=== PATIENT | male | born 1975 | race Caucasian/White ===

== ENCOUNTER 2024-05-21 11:28 | Emergency (ER) | payer SELFPAY ==
--- OUTSIDE RECORDS SUMMARY | 2024-05-21 11:31 | XMS REPORT | Continuity of Care Document ---
Author Name Unknown Address [address] [facility] th[address] Address [address] [facility] [place] [address] Care Team Providers Care Fingerer Name Role Phone PCP, PATIENT DOES NOT HAVE A Primary Care Physic mary Unavailable Ar Malloy Attending Clinician [phone] AR SALMERON Attending Clinician Unavailable AR SALMERON Attending Clinician Unavailable AR SALMERON Admitting Clinician Unavailable Allergies, Adverse Reactions, Alerts Allergy Name Allergy Type Status Severity Reaction(s) Onset Date Inactive Date Treating Clinician Comments Source NO KNOWN ALLERGIE S Drug Class Active [facility] Social History Social Habit Start Date Stop Date Quantity Comments Source Sexual orientation U [facility] Sex assigned at 1975 00:00:00 1975 00:00:00 [facility] Smoking Status Start Date Stop Date Source Tobacco smoking consumption unknown [facility] Medications Ordered Medication Name Filled Medication Name Start Date Stop Date Current Medication? Ordering Clinician Indication Dosage Frequency Signature (SIG) Comments Components Source NaCl 0.9% (NS) bolus infusion 1,000 mL 2023-03 00:00: 00 02-19 01:45 :00 No 1000mL at 999 mL/hr, 1,000 mL, IV Infusion, ONCE, 1 dose, On Tracy 02/19/24 at 1800, TAMMY [facility] iopamidol (ISOVUE 370-500 mL) injection 84 mL 2023-03 22:00: 00 02-18 22:00 :00 No [id number] 84mL 84 mL, Intravenou s, ONCE, 1 dose, On Tracy 02/19/24 at 1600, Routine [facility] KCL (KLOR-CON M20) tablet 40 mEq 2023-03 21:15: 00 02-18 22:10 :00 No 40meq 40 mEq, Oral, ONCE, 1 dose, On Tracy 02/19/24 at 1515, TAMMY [facility] NaCl 0.9% (NS) bolus infusion 1,000 mL 2023-03 21:00: 00 02-18 22:08 :00 No 1000mL at 999 mL/hr, 1,000 mL, IV Infusion, ONCE, 1 dose, On Tracy 02/19/24 at 1500, TAMMY [facility] ondansetron (ZOFRAN (PF)) injection 4 mg 2023-03 20:15: 00 02-18 20:35 :00 No 4mg 4 mg, Slow IV Push, ONCE, 1 dose, On Tracy 02/19/24 at 1415, Administer over 2-5 Minutes, 2 mL [facility] ondansetron 4 mg disintegrat ing tablet 2023-03 00:00: 00 Yes [id number] 4mg Take 1 tablet by mouth every 8 (eight) hours as needed for Nausea and Vomiting (N/V). [facility] KCL 10 mEq tablet 2023-03 00:00: 00 02-18 00:00 :00 No [id number] 10meq Take 1 tablet by mouth in the morning. [facility] Vital Signs Vital Name Observation Time Observation Value Comments S genesis Systolic blood pressure 2024-02-20 01:45:00 120 mm[Hg] [facility] Diastolic blood pressure 2024-02-20 01:45:00 72 mm[Hg] [facility] Heart rate 2024-02-20 01:45:00 111 /min [facility] Body temperature 2024-02-20 01:45:00 36.56 Harriet [facility] Respiratory rate 2024-02-20 01:45:00 20 /min [facility] Oxygen saturation in Arterial blood by Pulse oximetry 2024-02-20 01:45:00 98 /min [place] [facility] [place] [facility] Body height 2024-02-19 19:52:00 175.3 cm [facility] Body weight 2024-02-19 19:52:00 77.111 kg [facility] BMI 2024-02-19 19:52:00 25.10 kg/m2 [facility] Procedures Procedure Date / Time Performed Performing Clinicia n Source CT ABDOMEN PELVIS W CONTRAST 2024-02-19 21:09:09 Ar Salmeron [facility] LIPASE 2024-02-19 20:32:00 Ar Salmeron [facility] COMP. METABOLIC PANEL ([id number]) 2024-02-19 20:32:00 Ar Salmeron [facility] ETHANOL 2024-02-19 20:32:00 Ar Salmeron [facility] CBC WITH DIFF 2024-02-19 20:32:00 Ar Salmer[facility] URINALYSIS 2024-02-19 20:32:00 Ar Salmeron [facility] Encounters Start Date/Time End Date/Time Encounter Type Admission Type Attending Clinicians Care Facility Care Department Encounter ID Source 2024-02-19 13:54:00 2024-02-19 19:50:00 Emergency Ar Salmeron AT [facility] [id number] [facility] 2024-02-19 13:54:00 2024-02-19 19:50:00 Emergency X AR SALMERON [facility] ERT [id number] [facility] Results Test Description Test Time Test Comments Results Result Comments Source CT ABDOMEN PELVIS W CONTRAST 2024-01-31 2 00:12:12 EXAM: CT ABDOMEN/PELVIS WITH CONTRAST HISTORY: ?Nausea/vomiting Abdominal pain, acute, nonlocalized ? COMPARISON: None. TECHNIQUE AND FINDINGS: Contiguous axial imaging from the level of the lungbases through the proximal thighs was performed after the administration ofintravenous contrast. Coronal and sagittal reconstructions were obtained. ? FINDINGS: LOWER THORAX: There is subsegmental atelectasis in the dependent lungbases. No cardiomegaly. There is circumferential thickening of the distalesophageal wall. LIVER: Ill-defined hypodensity measuring approximately 3.5 cm in transversediameter in the right hepatic lobe adjacent to the falciform gallbladderfossa is present. A separate ill-defined hypodensity is seen laterally inthe right hepatic lobe measuring approximately 1.2 cm. There is an overallmottled appearance of the remaining liver parenchyma, most notably in thelateral left hepatic lobe. Hepatomegaly measuring 22.2 cm in craniocaudal dimensions. GALLBLADDER AND BILIARY TREE: No biliary ductal dilation. ?No gallbladderwall thickening. SPLEEN: Splenomegaly measuring 14.8 cm in craniocaudal dimensions. PANCREAS: No ductal dilation or masses. ADRENAL GLANDS: No adrenal nodules. KIDNEYS: Bilateral symmetrical enhancement. No hydronephrosis, stones, ormasses. GI TRACT: No dilatation. The appendix is unremarkable. There iscircumferential thickening of the cox of the rectum. Fluid-filled loopsof nondistended small bowel are visualized. PELVIS/BLADDER: There is circumferential bladder wall thickening. PERITONEUM AND RETROPERITONEUM: No free air. Mild volume free fluid is seenadjacent to the anterior liver and spelled out throughout all 4 abdominalquadrants and also present in the pelvis. There is para-aortic fatstranding predominantly around the celiac trunk and SMA. LYMPH NODES: A prominent asya hepatis lymph node measures 1.0 cm in shortaxis axial diameter.. VESSELS: Unremarkable. BONES AND SOFT TISSUES: No suspicious lytic or sclerotic bony lesions. [facility] ALCOHOL<10mg/dL02/19/2024 3:01 PM [facility]10 [id number] Toxic>100 Depression of MACHINE BOSS>400 Fatalities ReportedUnB[facility]aleLIPASE2024-11-21 20:57:44* Test Item Value Reference Range Interpretation Comme nts LIPASE (test code = 0541558258) 113 U/L 0-220 Lab Interpretation (test cod e = 54191-1) [facility] [id number] 20:50:05* Test Item Value Reference Range Interpretation Comme nts WBC (test code = 6690-2) 12.80 4.20-10.70 H RBC (test code = 789-8) 2.98 4.26-5.52 L HGB (test code = 718-7) 11.1 g/dL 12.2-16.4 L HCT (test code = 4544-3) 31.5 % 38.4-49.3 L MCV (test code = 787-2) 105.7 fL 81.7-95.6 H MCH (test code = 785-6) 37.2 pg 26.1-32.7 H MCHC (test code = 786-4) 35.2 g/dL 31.2-35.0 H RDW-SD (test code = 16606-8) 55.7 fL 38.5-51.6 H RDW-CV (test code = 788-0) 14.6 % 12.1-15.4 PLT (test code = 777-3) 223 150-328 MPV (test code = 90427-6) 10.6 fL 9.8-13.0 NRBC/100 WBC (test code = 5041756918) 0.0 0.0-10.0 NRBC x10^3 (test code = 6554237050) See_Comment [Automated messa ge] The system which generated this result transmitted reference range: 10*3/?L. The reference range was not used to interpret this result as normal/abnormal. GRAN MAT (NEUT) % (test code = 770-8) 73.4 % IMM GRAN % (test code = 2628666291) 0.50 % LYMPH % (test code = 736-9) 16.0 % MONO % (test code = 5905-5) 9.1 % EOS % (test code = 713-8) 0.5 % BASO % (test code = 706-2) 0.5 % GRAN MAT x10^3(ANC) (test code = 1104341133) 9.39 10*3/uL 1.99-6.95 H IMM GRAN x10^3 (test code = 6873955343) 0.07 10*3/uL 0.00-0.06 H LYMPH x10^3 (test code = 731-0) 2.05 10*3/uL 1.09-3.23 MONO x10^3 (test code = 742-7) 1.16 10*3/uL 0.36-1.02 H EOS x10^3 (test code = 711-2) 0.07 10*3/uL 0.06-0.53 BASO x10^3 (test code = 704-7) 0.06 10*3/uL 0.01-0.09 Lab Interpretation (test code = 98869-5) Abnormal [facility] Notes Date/Time Note Provider Source 2024-02-19 19:50:00 Pt given printed and verbal discharge instructions regarding nausea, vomiting, diarrhea, leukocytosis, hypokalemia. Encouraged hydration, Prescriptions provided:chandni vazquez Pt verbalized understanding of instructions, pt awake alert oriented, resp reg unlabored, skin w/d, color appropriate for race, moves all ext well,pt encouraged to follow up with pcp. Advised to seek medical attention for new/prolonged/worsening of symptoms, Symptoms improved No adverse reaction to meds given in ER noted upon discharge PIV d'cd, dressing to site, catheter in tact. Awake, alert oriented, resp reg unlabored, skin w/d, pt leaving amb with steady gait, in no apparent distress. [facility] Heaven Ceron RN [facility] 2024-02-19 13:51:21 Nausea/vomiting, diarrhea and loss of appetite x1 month. No fevers, chest pain, cough/congestion, denies urinary symptoms. HX: HTN, depression. [facility]
[2024-05-21 12:16] LABS: Absolute Lymphocytes (CBC) 1.3 K/uL (0.7-4.9); Absolute Monocytes 0.1 K/uL (0.1-1.3); Absolute Neutrophil 8.1 K/uL (1.8-8.0); Basophils % 0.4 % (0-1.3); Eosinophils % 0.4 % (0-4.4); Hematocrit 28.6 % (39.6-49.0); Hemoglobin 10.1 g/dL (13.6-17.9); Lymphocytes % 13.3 % (15.3-44.8); MCH 37.8 pg (27.0-35.0); MCHC 35.1 g/dL (32.0-36.0); MCV 107.5 fL (80-100); MPV 9.9 fL (7.6-11.3); Neutrophils % 84.9 % (41.7-73.7); Nucleated RBC Absolute Count 0.1 (0-0); Nucleated Red Blood Cells % 0.9 % (0-0); Platelets 108 thou/uL (152-406); RBC Red Blood Cell Count 2.66 M/uL (4.33-5.43); Red Cell Distribution Width 16.1 % (12.1-15.2)
--- NOTE | 2024-05-21 12:30 | RAD REPORT ---
EXAM: CT brain without contrast HISTORY: AMS, possible head injury COMPARISON: None TECHNIQUE: Multiple contiguous axial images were obtained and a CT of the brain without contrast. Sag ittal and coronal reformats were performed. One or more of the following dose reduction techniques were used: Automated exposure control, adjust ment of the mA and/or kV according to patient size, and/or iterative reconstruction. FINDINGS: No evidence of hydrocephalus, intracranial hemorrhage, or extra-axial fluid collection. The brain is normal in morphology. No evidence of midline shift or areas of brain edema. The calvarium is intact. The visualized paranasal sinuses and mastoid air cells are essentially clear . IMPRESSION: No evidence of acute intracranial abnormality.
[2024-05-21 12:31] LABS: Protime INR 4.82
--- NOTE | 2024-05-21 12:43 | RAD REPORT ---
EXAM: CT CHEST, ABDOMEN AND PELVIS WITHOUT CONTRAST CLINICAL INDICATION: possible fall, AMS, cirrhosis TECHNIQUE: CT chest, abdomen and pelvis was performed without contrast, as per department protocol. A xial, sagittal and coronal reconstructions were obtained. One or more of the following dose reduction techniques were used: Automated exposure control, adjustment of the mA and/or kV according to patient size, and/or iterative reconstruction. Unless otherwise specified, incidental findings do not require dedicated imaging follow-up. Examination is limited by the lack of intravenous contrast material. COMPARISON: No prior exam. FINDINGS: LUNGS: Subtle areas of groundglass opacity are present in both lungs, greatest anterior left upper lo be. PLEURA: No pleural effusion. No pneumothorax. MEDIASTINUM AND LYMPH NODES: No mediastinal mass or fluid collection. Normal size mediastinal, hilar, and axillary lymph nodes. Patulous esophagus which appears to contain fluid. OSSEOUS STRUCTURES AND CHEST WALL: Intact. LIVER: Markedly enlarged liver containing poorly defined low density areas throughout. High density m aterial fills the gallbladder. PANCREAS: No mass, ductal dilation, or artie-pancreatic fluid. SPLEEN: Normal size. No focal lesion. ADRENALS: Normal; no mass. KIDNEYS: Normal size and contour. No hydronephrosis. URINARY BLADDER: Normal contour. GASTROINTESTINAL TRACT: No bowel obstruction, free air, significant free fluid or abscess. The colo n appears diffusely prominent and filled with liquid stool. APPENDIX: Appendix not visualized, but no inflammatory changes in region of appendix. LYMPH NODES: No lymphadenopathy. MUSCULOSKELETAL: No acute or suspicious osseous abnormality. OTHER: Mild fluid/thickening right paracolic gutter and within the left. Assessment limited by lack o f contrast material both IV and oral. Moderate bilateral gynecomastia. IMPRESSION: Significantly enlarged liver containing multiple areas of diminished density, indeterminate. This may be related to underlying regenerating nodules or masses. Follow-up MRI liver protocol may be useful. Small areas of groundglass opacity in both lungs may be infectious or related to aspiration. Mildly distended colon filled with liquid stool suggestive of colitis. This could be indicative of po rtal colopathy.
--- NOTE | 2024-05-21 12:53 | RAD REPORT ---
EXAMINATION: ONE VIEW CHEST XR CLINICAL INDICATION: AMS TECHNIQUE: Frontal chest projection is submitted. Examination is limited by patient positioning and t echnique. COMPARISON: No prior exam. FINDINGS: Mild bilateral interstitial lung opacities are seen which could be interstitial pulmonary edema or br onchitis. The heart is upper limit of normal in size. No displaced fractures identified.
[2024-05-21] MEDS ORDERED: PIPERACIL/TAZO 3.375 GM VIAL IV ONE (13:05)
[2024-05-21] MEDS ORDERED: NA CHLORIDE 0.9% 100 ML ONE (13:05)
[2024-05-21] MEDS ORDERED: NA CHLORIDE 0.9% 1,000 ML ONE (13:06)
[2024-05-21 13:13] LABS: Albumin/Globulin Ratio 0.5 (1.1-1.8); Anion Gap 35.4 mEq/L (5.0-15.0); Bilirubin Total 11.4 mg/dL (0.2-1.0); Globulin 4.4 g/dL (2.3-3.5); Potassium 3.4 mEq/L (3.5-5.1); Protein, Total 6.4 g/dL (6.4-8.2)
[2024-05-21] MEDS ORDERED: D5 0.9 NS 1,000 ML IV ONE (13:27)
[2024-05-21] MEDS ORDERED: GLUCAGON 1 MG/VIAL ONE (13:28)
[2024-05-21] MEDS ORDERED: CALCIUM GLUCONATE 1 GM IVPB 1 GM/50 ML BAG IV ONE (13:40)
[2024-05-21] MEDS ORDERED: NA CHLORIDE 3% 500 ML ONE (13:50)
[2024-05-21] MEDS ORDERED: NOREPINEPHRINE BITARTRATE/D5W 4 MG/250 ML BAG IV ONE ×2 (13:58→16:20)
[2024-05-21] MEDS ORDERED: LORazepam 2 MG/ML VIAL ONE (14:05)
[2024-05-21 14:08] LABS: Band Neutrophils 4 % (0-1); Differential Total Cells Count 100; Lymphocytes 13 % (15-42); Segmented Neutrophils 82 % (40-80)
[2024-05-21 14:09] LABS: Agglutinates, Cold (RBC Morph) NOTED; Atypical Lymphocytes 1 %; Blood Morphology Comment NOTED (NOT SEEN); Macrocytosis 1+; Nucleated Red Blood Cells 1 /100WBC; Platelet Estimate DECR; Platelets, Giant NOTED
[2024-05-21] MEDS ORDERED: PANTOPRAZOLE 40 MG INJ ONE (14:17)
[2024-05-21] MEDS ORDERED: OCTREOTIDE ACETATE 100 MCG/ML ONE (14:17)
--- NOTE | 2024-05-21 14:18 | EDPHYS ---
Physician Documentation [facility] Name: Stuart Phillip Age: 49 yrs Sex: Male : 1975 Arrival Date: 05/21/2024 Time: 11:28 Bed DX3 Private MD: ED Physician Anthony Mayen HPI: 05/21 14:04 This 49 yrs old Male presents to ER via Unassigned with complaints of AMS. rn 14:04 The patient presents with decreased responsiveness. Onset: The symptoms/episode rn began/occurred at an unknown time. Current symptoms: In the emergency department the patient's symptoms are unchanged from the initial presentation. It is unknown whether or not the patient has had similar symptoms in the past. Patient brought in by EMS, found down on ground, altered. Told by EMS he has alcoholic cirrhosis. EMS reports normal blood pressure, no seizures. Historical: - Allergies: 14:24 Unable to obtain; ss - Home Meds: 14:24 Unable to obtain [Active]; ss - PMHx: 14:24 Unable to Obtain; ss - PSHx: 14:24 Unable to Obtain; ss - Immunization history:: Adult Immunizations unknown. - Infectious Disease History:: unknown. - Social history:: Smoking status: unknown. - Unable to obtain history due to: altered mental status. ROS: 14:04 Unable to obtain ROS due to altered mental status, rn Exam: 14:04 Constitutional: Disheveled male, jaundice, altered but protecting airway Head/Face: rn Normocephalic, atraumatic. Eyes: Scleral icterus Cardiovascular: Regular rate and rhythm. No pulse deficits. Respiratory: Mild tachypnea Abdomen/GI: Distended abdomen with ascites MS/ Extremity: Pulses equal, no cyanosis. Neuro: Mumbling, answers some questions, moves all 4 extremities with equal strength. Not oriented to place or time 14:49 ECG was reviewed by the Attending Physician. rn Vital Signs: 11:30 BP 88 / 50; Pulse 59; Resp 22; Temp 96.8; Pulse Ox 100% ; ko1 12:00 BP 132 / 103; Pulse 70; Resp 19; Pulse Ox 97% on Non-rebreather mask; ko1 12:30 BP 90 / 42; Pulse 67; Resp 15; Pulse Ox 99% ; ko1 13:00 BP 72 / 44; Pulse 67; Resp 19; Pulse Ox 100% on Non-rebreather mask; ko1 13:20 BP 82 / 44; Pulse 67; Resp 23 S; Pulse Ox 100% on 2 lpm NC; aa5 13:40 BP 82 / 69; Pulse 68; Resp 22 S; Pulse Ox 99% on 2 lpm NC; aa5 13:50 Pain 0/10; ss 13:50 Weight 86.18 kg; aa5 13:55 Pulse 29; ss 13:58 Pulse 51; Resp 22 A; Pulse Ox 92% on BVM; FiO2 100 %; ss 13:58 BP 142 / 64; Pulse 95; Resp 16 A; Pulse Ox 100% on ETT vent; aa5 14:00 BP 140 / 78; Pulse 67; Resp 16 A; Pulse Ox 100% on ETT vent; aa5 14:03 BP 142 / 58; Pulse 70; Resp 16 A; Pulse Ox 100% on ETT vent; aa5 14:05 BP 58 / 39; Pulse 73; Resp 16 A; Pulse Ox 100% on ETT vent; aa5 14:08 BP 62 / 28; Pulse 72; Resp 16 A; Pulse Ox 100% on ETT vent; aa5 14:11 BP 110 / 64; Pulse 72; aa5 14:15 BP 111 / 60; Pulse 72; aa5 14:20 BP 114 / 67; Pulse 71; Resp 16 A; Pulse Ox 100% on ETT vent; aa5 14:32 BP 111 / 60; Pulse 73; aa5 14:37 BP 107 / 58; Pulse 75; aa5 14:42 BP 100 / 59; Pulse 73; aa5 14:47 BP 105 / 59; Pulse 73; Resp 16 A; Pulse Ox 100% on ETT vent; aa5 14:55 BP 106 / 54; Pulse 70; Resp 16 A; Pulse Ox 100% on ETT vent; aa5 15:05 BP 98 / 56; Pulse 68; Resp 16 A; Pulse Ox 100% on ETT vent; aa5 15:10 BP 98 / 52; Pulse 72; Resp 16 A; Pulse Ox 100% on ETT vent; aa5 15:15 BP 104 / 53; Pulse 65; Resp 16 A; Pulse Ox 100% on ETT vent; aa5 15:20 BP 102 / 48; Pulse 70; Resp 16 A; Temp 96.6(Ca); Pulse Ox 100% on ETT vent; aa5 15:35 BP 107 / 52; Pulse 71; Resp 16 A; Pulse Ox 100% on ETT vent; aa5 15:45 BP 116 / 51; Pulse 71; Resp 16 S; Pulse Ox 99% on ETT vent; aa5 16:00 BP 111 / 54; Pulse 68; Resp 16 A; Pulse Ox 98% on ETT vent; aa5 13:50 Pain Scale: Adult ss Procedures: 14:01 Intubation: Ventilated with 100% NRB prior to procedure. 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 Intubated orally using # 4 Abel blade with 7.5 mm ETT. was successful on first attempt. Cricoid pressure applied during procedure. Tube secured with ETT flores at right side of mouth measured 24 cm at teeth. Placement verified by CO2 detector with (+) color change, auscultating bilateral breath sounds, O2 saturation after procedure was 94 %. Patient tolerated well. MDM: 11:29 Medical Screening Exam initiated rn 12:59 ED course: CT imaging shows possible colitis that could be secondary to cirrhotic rn pathophysiology versus infection. X-ray with edema versus aspiration pneumonitis. Patient with elevated lactic acid. Will not receive full 30/kg bolus given already volume overload status, has ascites, is cirrhotic, chest x-ray shows possible pulmonary edema. Instead will receive 1 L bolus and will reassess after that.. 14:01 ED course: Patient had a seizure while attempting central line, decided to intubate rn after blood pressure dropped and pulse became weak. Questionable whether completely lost pulse but chest compressions started, see CPR flowsheet. Central line placed by Dr. Hooks while I intubated. Achieved ROSC with heart rate in the 30s, quickly responded to hypertonic saline with improvement of heart rate to the 60s and blood pressure 140/78. Levophed initiated. Glucose 90 so was not hypoglycemic episode.. ED course: Sepsis reevaluation completed. 14:20 Differential Diagnosis: Hyponatremia, hepatic encephalopathy, GI bleed, acute traumatic rn injuries. Data reviewed: vital signs, nurses notes, lab test result(s), EKG, radiologic studies, CT scan, plain films, and as a result, I will admit patient. Consideration of Admission/Observation Patient was admitted/placed on observation. Escalation of care including admission/observation considered. Counseling: I had a detailed discussion with the patient and/or guardian regarding the historical points, exam findings, and any diagnostic results supporting the discharge/admit diagnosis, lab results, radiology results, the need to transfer to another facility, for higher level of care, [facility] does not immediately have the required specialist. 14:23 ED course: Immediately during the seizure hypertonic saline ordered presuming seizure rn secondary to hyponatremia.. 15:01 ED course: Line Maintenance at [facility] reports he does not believe patient is stable rn enough for transfer at this time, request more sodium bicarb and continue to resuscitation with repeat ABG to see if pH comes up. They do not want to take patient at this time for transfer. 15:47 ED course: Notified patient's sister of clinical status and need for transport, she rn agrees, patient accepted for transfer to [facility]. 15:47 ED course: Patient ended up receiving 2 L bolus followed by Levophed initiation for rn hypotension. Was not given 30/kg bolus of fluids given volume overload status, ascites, renal failure and liver patient. Sepsis reevaluation complete. Blood pressure currently 116/51 with a heart rate of 78. Patient showed agitation against ventilator so sedated with Versed and propofol.. 16:45 ED course: Sodium level up to 112 upon transfer.. rn 05/21 11:30 Order name: Blood Culture Adult (2) 05/21 11:30 Order name: CBC with Diff; Complete Time: 14:17 05/21 11:30 Order name: CMP; Complete Time: 14:08 05/21 11:30 Order name: Lactate w/ 2H reflex if indic.; Complete Time: 12:55 05/21 11:30 Order name: Protime (+inr); Complete Time: 12:55 05/21 11:30 Order name: Ptt, Activated; Complete Time: 12:55 05/21 11:30 Order name: ETOH Level; Complete Time: 12:55 05/21 11:30 Order name: AMMONIA; Complete Time: 12:55 05/21 12:20 Order name: Manual Differential; Complete Time: 14:17 EDWV 05/21 12:44 Order name: Ghost Lactate-NO COLLECT Timer; Complete Time: 14:53 [facility] 05/21 14:11 Order name: Glucose, Ancillary Testing; Complete Time: 14:17 EDWV 05/21 14:33 Order name: ABG Arterial Blood Gas; Complete Time: 14:53 EDWV 05/21 16:00 Order name: BMP rn 05/21 11:30 Order name: CT Head Brain wo Cont; Complete Time: 12:55 rn 05/21 11:30 Order name: Chest Single View XRAY; Complete Time: 12:55 rn 05/21 11:40 Order name: CT Chest Abdomen Pelvis W/O Contrast; Complete Time: 12:55 rn 05/21 14:30 Order name: XRAY Chest (1 view); Complete Time: 14:58 rn 05/21 11:30 Order name: Accucheck; Complete Time: 12:06 rn 05/21 11:30 Order name: Cardiac monitoring; Complete Time: 12:06 rn 05/21 11:30 Order name: EKG - Nurse/Tech; Complete Time: 13:28 rn 05/21 11:30 Order name: IV Saline Lock - Large Bore; Complete Time: 12:06 rn 05/21 11:30 Order name: Labs collected and sent; Complete Time: 12:06 rn 05/21 11:30 Order name: O2 Per Protocol; Complete Time: 12:06 rn 05/21 11:30 Order name: O2 Sat Monitoring; Complete Time: 12:06 rn 05/21 11:30 Order name: Vital Signs; Complete Time: 12:06 rn 05/21 17:20 Order name: Central Line Dressing Kit; Complete Time: 17:21 kb3 05/21 17:20 Order name: Central Line Kit; Complete Time: 17:21 kb3 05/21 17:20 Order name: Consent for central line completed; Complete Time: 17:21 kb3 05/21 17:20 Order name: Line Caps x3; Complete Time: 17:21 kb3 05/21 17:20 Order name: NS Flushes x3; Complete Time: 17:21 kb3 05/21 17:20 Order name: Sterile Gloves; Complete Time: 17:21 kb3 EC:49 Rate is 67 beats/min. Rhythm is regular. QRS [place] is Normal. PA interval is normal. QRS rn interval is normal. No ST changes noted. Clinical impression: NSR w/ Non-specific ST/T Changes. Interpreted by me. Reviewed by me. Administered Medications: 13:10 Drug: NS 0.9% IV 1000 ml IV at 1000 ml once; to be given as a bolus over 60 minutes aa5 Route: IV; Rate: 1000 ml; Site: right wrist; 14:00 Follow up: IV Status: Completed infusion; IV Intake: 1000ml kb3 13:20 Drug: Piperacillin-Tazobactam IVPB 3.375 grams IVPB once over 60 mins; (mix in NS 100 aa5 mL) Route: IVPB; Infused Over: 60 mins; Site: right wrist; 14:20 Follow up: IV Status: Completed infusion; IV Intake: 100ml kb3 13:30 Drug: Glucagon IVP 1 mg IVP once Route: IVP; Site: right wrist; aa5 13:40 Follow up: Response: No adverse reaction aa5 13:30 Drug: D5-NS IV 1000 ml IV at bolus once; 1000 mL bolus; followed by 125 mL/hr aa5 continuous Route: IV; Rate: bolus; Site: right wrist; 17:13 Follow up: IV Status: Completed infusion; IV Intake: 1250ml kb3 13:42 Drug: Calcium Gluconate IVPB 1 grams IVPB once over 60 mins; (mix in NS 100 mL) Route: aa5 IVPB; Infused Over: 60 mins; Site: right wrist; 15:00 Follow up: Response: No adverse reaction; IV Status: Completed infusion; IV Intake: kb3 100ml 13:52 Drug: EPINEPHrine 0.1mg/mL 1:10,000 1 mg IVP once Route: IVP; Site: right wrist; ss 14:00 Follow up: Response: No adverse reaction aa5 13:56 Drug: EPINEPHrine 0.1mg/mL 1:10,000 1 mg IVP once Route: IVP; Site: right wrist; ss 14:00 Follow up: Response: No adverse reaction aa5 14:05 Drug: Norepinephrine IV 0.1 mcg/kg/min IV at calculated rate Per protocol; (Standard aa5 concentration 4 mg / 250 mL D5W); Recommended max rate 3 mcg/kg/min; Titrate 0.05 mcg/kg/min as often as every 5 minutes to achieve goal (see titration policy); Goal parameter MAP greater than 65 mmHg. {Note: VO was obtained at 1405. Started infusion at 0.2mcg/kg/min per Dr. Mayen's VO. .} Route: IV; Rate: calculated rate; Site: right femoral; 15:10 Follow up: Rate change 0.3 mcg/kg/min; Per MD VO aa5 15:20 Follow up: Rate change 0.4 mcg/kg/min; Rate change ok'd by MD aa5 16:20 Follow up: IV Status: Infusion continued upon transfer aa5 14:06 Drug: Ativan IVP 4 mg IVP once; VO at 1405 Route: IVP; Site: right wrist; aa5 14:08 Follow up: Response: No adverse reaction aa5 14:21 Drug: Pantoprazole IVP 40 mg IVP once Route: IVP; Site: right femoral; aa5 14:30 Follow up: Response: No adverse reaction aa5 14:21 Drug: Octreotide IV 50 mcg IV at calculated rate once Route: IV; Rate: calculated rate; aa5 Site: right femoral; 14:30 Follow up: Response: No adverse reaction aa5 17:23 Follow up: Response: Infusion continued upon transfer; IV Status: Completed infusion kb3 14:28 Drug: Sodium Bicarbonate IVP 1 amp IVP once; (50 mL); equals 50 mEq Route: IVP; Site: ss right femoral; 15:00 Follow up: Response: No adverse reaction aa5 14:32 Drug: Midazolam IVP or IV 3 mg IVP once Route: IVP; Site: right femoral; aa5 14:37 Follow up: Response: No adverse reaction aa5 14:32 Drug: Propofol IV 5 mcg/kg/min IV at calculated rate See Administration Instructions; aa5 Standard concentration 1000 mg / 100 mL; Recommended max rate 50 mcg/kg/min; Titrate 5 mcg/kg/min every 5 minutes to achieve goal (see titration policy); Goal parameter RASS score 0 to -2 Route: IV; Rate: calculated rate; Site: right femoral; 14:37 Follow up: Rate change 10 mcg/kg/min aa5 14:42 Follow up: Rate change 15 mcg/kg/min aa5 14:47 Follow up: Rate change 20 mcg/kg/min aa5 14:52 Follow up: Rate changed to 25mcg/kg/min aa5 14:57 Follow up: Rate changed to 30mcg/kg/min aa5 16:20 Follow up: Response: Infusion continued upon transfer. aa5 16:20 Follow up: IV Status: Infusion continued upon transfer kb3 15:05 Drug: Pantoprazole IV 8 mg/hr IV at 25 ml/hr continuous; (Standard dilution is 80 mg in aa5 250 mL NS) Route: IV; Rate: 25 ml/hr; Site: right femoral; 16:20 Follow up: IV Status: Infusion continued upon transfer kb3 16:20 Follow up: Response: Infusion continued upon tranfer aa5 15:05 Drug: Octreotide Infusion (50 mcg/hr) - (Octreotide IV 500 mcg, NS 0.9% IV 500 ml) IV aa5 at 50 ml/hr continuous Route: IV; Rate: 50 ml/hr; Site: right femoral; 16:20 Follow up: IV Status: Infusion continued upon transfer kb3 15:10 Drug: Sodium Bicarbonate IVP 1 amp IVP once; (50 mL); equals 50 mEq Route: IVP; Site: aa5 right femoral; 15:20 Follow up: Response: No adverse reaction 5 15:10 Drug: Sodium Bicarbonate IVP 1 amp IVP once; (50 mL); equals 50 mEq Route: IVP; Site: aa5 right femoral; 15:20 Follow up: Response: No adverse reaction aa5 16:50 Not Given (Physician Discretion): [id number] ml, sodium bicarbonate ivp 150 meq IV at aa5 calculated rate continuous 17:21 Not Given (Emergencyy): mupirocinointment 2 % 1 application Topical once; Pea sized kb3 amount to both nares Disposition: 14:17 Critical Care:. 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 Total time: 40 rn minutes Signatures: Dispatcher [employer] EDMS Anthony Mayen MD MD rn Calderon, Audri, RN RN aa5 Anne Goss, RN RN ss Johnny Hernandez PA PA Julianne Sanon, RN RN jl7 Yessenia Germain, RN RN kb3 Corrections: (The following items were deleted from the chart) 11 11:30 BLOOD CULTURE*+BA.LAB.BRZ ordered. EDMS EDMS 11 11:30 CBC+H.LAB.BRZ ordered. EDMS EDMS 11:30 COMPREHENSIVE METABOLIC PANEL+C.LAB.BRZ ordered. EDMS EDMS 11:30 LACTATE+C.LAB.BRZ ordered. EDMS EDMS 11:30 PROTIME (+INR)+COAG.LAB.BRZ ordered. EDMS EDMS 11:30 PTT, ACTIVATED+COAG.LAB.BRZ ordered. EDMS EDMS 11:30 Urinalysis+U.LAB.BRZ ordered. EDMS EDMS 11:30 ETHANOL+C.LAB.BRZ ordered. EDMS EDMS 11:30 AMMONIA+C.LAB.BRZ ordered. EDMS EDMS 11:31 Chest Single View+RAD.RAD.BRZ ordered. EDMS EDMS 15:02 15:01 ED course: Line Maintenance at [facility]' reports he does not believe patient is rn stable enough for transfer at this time, request more sodium bicarb and continue to resuscitation with repeat ABG to see if pH comes up.. rn 16:01 16:01 BASIC METABOLIC PANEL+C.LAB.BRZ ordered. EDWV EDMS 16:53 14:17 Dr. ruiz aa5 17:25 16:53 Dr. beth kb3 17:26 14:17 [facility] rn kb3 17:26 17:25 kb3 kb3 17:26 17:26 Dr. torres3 kb3
--- NOTE | 2024-05-21 14:18 | ER ---
Nurse's Notes [facility] Name: Stuart Phillip Age: 49 yrs Sex: Male : 1975 Arrival Date: 05/21/2024 Time: 11:28 Bed DX3 Private MD: Diagnosis: Hypo-osmolality and hyponatremia;Altered mental status, unspecified;Pneumonia, unspecified organism;Alcoholic cirrhosis of liver with ascites;Acidosis Presentation: 05/21 11:30 Chief complaint: EMS states: family called from 4 hours away for a welfare check, ko1 police called EMS and they patient had AMS, blood sugar read low, glucagon given and transported. Coronavirus screen: At this time, the client does not indicate any symptoms associated with coronavirus-19. Ebola Screen: No symptoms or risks identified at this time. Onset of symptoms was May 21, 2024. 11:30 Method Of Arrival: EMS: [facility] ko1 11:30 Initial Sepsis Screen: Does the patient meet any 2 criteria? No. Patient's initial ko1 sepsis screen is negative. Does the patient have a suspected source of infection? No. Patient's initial sepsis screen is negative. Risk Assessment: Do you want to hurt yourself or someone else? Patient reports no desire to harm self or others. 11:30 Acuity: BRAULIO 2 ko1 13:50 Compressions began at 13:50. aa5 Triage Assessment: 11:30 General: Appears ill, unkempt, Behavior is drowsy. Pain: Unable to use pain scale. jl7 Patient is disoriented. Historical: - Allergies: 14:24 Unable to obtain; ss - Home Meds: 14:24 Unable to obtain [Active]; ss - PMHx: 14:24 Unable to Obtain; ss - PSHx: 14:24 Unable to Obtain; ss - Immunization history:: Adult Immunizations unknown. - Infectious Disease History:: unknown. - Social history:: Smoking status: unknown. - Unable to obtain history due to: altered mental status. Screenin:00 [facility] ED Fall Risk Assessment (Adult) History of falling in the last 3 months, aa5 including since admission Confusion or Disorientation Yes (5 pts) Intoxicated or Sedated Impaired Gait Mobility Assist Device Used Altered Elimination Score/Fall Risk Level 3 or more points = High Risk Oriented to surroundings, Maintained a safe environment, Educated pt \T\ family on fall prevention, incl call for assistance when getting out of bed, Assessed \T\ reinforced patient's understanding of fall precautions. 13:00 Abuse screen: unknown. Nutritional screening: unknown . Tuberculosis screening: unknown aa5 . Assessment: 12:41 Reassessment: Dr. Mayen notified of critical lab value, LACTATE 12.8. ss 13:00 General: Appears uncomfortable, Behavior is restless. Pain: Unable to use pain scale. aa5 Patient is disoriented. Does not appear to understand pain scale. Neuro: Level of Consciousness is awake, obeys commands, confused, Oriented to person, [employer] Tender are equal bilaterally Moves all extremities. Speech garbled and difficult to understand. . Facial symmetry appears normal. Cardiovascular: Heart tones S1 S2 present Rhythm is regular. Respiratory: Airway is patent Respiratory effort is even, unlabored, Respiratory pattern is regular, symmetrical. GI: Abdomen is round Swelling noted to abdomen. : No signs and/or symptoms were reported regarding the genitourinary system. EENT: dry blood noted to lips . Sclera is jaundiced. . Derm: Skin is dry, Skin is jaundiced, Skin temperature is cool. Musculoskeletal: Range of motion: intact in all extremities. 13:50 Reassessment: No pulse, TY SERRANO called. Dr. Mayen at bedside. CPR started, bagged by BV. 13:50 Reassessment: At bedside with Dr. Mayen preparing for central line insertion at 1340, aa5 At 1348 pt started having seizure activity lasting approximately 1 minute, HR decreased to 29 with weak central pulse and at 1350 no central line pulse palpated. CPR initiated by ekg technician, respirations assisted via BVM at 100% O2 by in and ty serrano called. . 13:52 Reassessment: Pulse check, PEA. No pulse. CPR resumed. ss 13:54 Reassessment: Pulse check, no pulse. PEA. CPR resumed. ss 13:56 Reassessment: Pulse check, + pulse Bradycardia. HR 29. ss 14:00 Neuro: Level of Consciousness is sedated . Respiratory: Airway via oral intubation aa5 Respiratory effort is assisted Respiratory pattern is symmetrical. Derm: Skin is dry, Skin is jaundiced, Skin temperature is cool. 14:00 Cardiovascular: Pulses are 2+ in left carotid pulse. aa5 14:05 Reassessment: Seizure activity noted, MD aware (see MAR for medication administered), aa5 lasted approximately 30 seconds. . 14:40 Reassessment: Awaiting drips from pharmacy (octreotide, Proprofol, and Sodium Bicarb aa5 drip). 15:00 Neuro: Level of Consciousness is sedated . Respiratory: Airway via oral intubation aa5 Respiratory effort is assisted Respiratory pattern is symmetrical. Derm: Skin is dry, Skin is jaundiced, Skin temperature is cool. 15:00 Cardiovascular: Pulses are 3+ in left carotid pulse. aa5 16:00 Neuro: Level of Consciousness is sedated . Respiratory: Airway via oral intubation aa5 Respiratory effort is assisted. Derm: Skin is dry, Skin is jaundiced, Skin temperature is cool. 16:20 Reassessment: Life [facility] at bedside . aa5 Vital Signs: 11:30 BP 88 / 50; Pulse 59; Resp 22; Temp 96.8; Pulse Ox 100% ; ko1 12:00 BP 132 / 103; Pulse 70; Resp 19; Pulse Ox 97% on Non-rebreather mask; ko1 12:30 BP 90 / 42; Pulse 67; Resp 15; Pulse Ox 99% ; ko1 13:00 BP 72 / 44; Pulse 67; Resp 19; Pulse Ox 100% on Non-rebreather mask; ko1 13:20 BP 82 / 44; Pulse 67; Resp 23 S; Pulse Ox 100% on 2 lpm NC; aa5 13:40 BP 82 / 69; Pulse 68; Resp 22 S; Pulse Ox 99% on 2 lpm NC; aa5 13:50 Pain 0/10; ss 13:50 Weight 86.18 kg; aa5 13:55 Pulse 29; ss 13:58 Pulse 51; Resp 22 A; Pulse Ox 92% on BVM; FiO2 100 %; ss 13:58 BP 142 / 64; Pulse 95; Resp 16 A; Pulse Ox 100% on ETT vent; aa5 14:00 BP 140 / 78; Pulse 67; Resp 16 A; Pulse Ox 100% on ETT vent; aa5 14:03 BP 142 / 58; Pulse 70; Resp 16 A; Pulse Ox 100% on ETT vent; aa5 14:05 BP 58 / 39; Pulse 73; Resp 16 A; Pulse Ox 100% on ETT vent; aa5 14:08 BP 62 / 28; Pulse 72; Resp 16 A; Pulse Ox 100% on ETT vent; aa5 14:11 BP 110 / 64; Pulse 72; aa5 14:15 BP 111 / 60; Pulse 72; aa5 14:20 BP 114 / 67; Pulse 71; Resp 16 A; Pulse Ox 100% on ETT vent; aa5 14:32 BP 111 / 60; Pulse 73; aa5 14:37 BP 107 / 58; Pulse 75; aa5 14:42 BP 100 / 59; Pulse 73; aa5 14:47 BP 105 / 59; Pulse 73; Resp 16 A; Pulse Ox 100% on ETT vent; aa5 14:55 BP 106 / 54; Pulse 70; Resp 16 A; Pulse Ox 100% on ETT vent; aa5 15:05 BP 98 / 56; Pulse 68; Resp 16 A; Pulse Ox 100% on ETT vent; aa5 15:10 BP 98 / 52; Pulse 72; Resp 16 A; Pulse Ox 100% on ETT vent; aa5 15:15 BP 104 / 53; Pulse 65; Resp 16 A; Pulse Ox 100% on ETT vent; aa5 15:20 BP 102 / 48; Pulse 70; Resp 16 A; Temp 96.6(Ca); Pulse Ox 100% on ETT vent; aa5 15:35 BP 107 / 52; Pulse 71; Resp 16 A; Pulse Ox 100% on ETT vent; aa5 15:45 BP 116 / 51; Pulse 71; Resp 16 S; Pulse Ox 99% on ETT vent; aa5 16:00 BP 111 / 54; Pulse 68; Resp 16 A; Pulse Ox 98% on ETT vent; aa5 13:50 Pain Scale: Adult ss ED Course: 11:29 Patient arrived in ED. rn 11:29 Anthony Mayen MD is Attending Physician. rn 11:45 First set of blood cultures drawn by me. zm 12:00 Initial lab(s) drawn, by in, sent to lab. Second set of blood cultures drawn by in. zm 12:04 Inserted saline lock: 20 gauge in right wrist, using aseptic technique. Blood zm collected. Flushed with 10 mL NS. 12:06 CT Head Brain wo Cont In Process Unspecified. EDMS 12:06 CT Chest Abdomen Pelvis W/O Contrast In Process Unspecified. EDMS 12:06 Blood Culture Adult (2) Sent. zm 12:06 CBC with Diff Sent. zm 12:06 CMP Sent. zm 12:06 Lactate w/ 2H reflex if indic. Sent. zm 12:06 Protime (+inr) Sent. zm 12:06 Ptt, Activated Sent. zm 12:06 ETOH Level Sent. zm 12:06 AMMONIA Sent. zm 12:47 Elizabeth Becerril, RN is Primary Nurse. ko1 12:48 Chest Single View XRAY In Process Unspecified. EDMS 13:00 Patient has correct armband on for positive identification. Bed in low position. Call aa5 light in reach. Side rails up X2. Client placed on continuous cardiac and pulse oximetry monitoring. NIBP monitoring applied. pvc monitor on. Pulse ox on. NIBP on. 13:25 EKG done, by ED staff, reviewed by Anthony Mayen MD. aa5 13:54 Assisted provider with intubation using 7.5 mm ETT via oral route. ET tube secured at ss 24cm at the teeth. Set up intubation tray. Intubated by Anthony Mayen MD Placement verified by CO2 detector w/ + color change, auscultating bilateral breath sounds. 13:55 [place] cath inserted, using sterile technique, 16 Fr., by ED staff, balloon inflated, to ss gravity drainage. 13:56 NGT: inserted 18 Fr. via left nare. verified placement of air over stomach, to aa5 intermittent suction. Returned bright red blood. 13:57 Assisted provider with central line placement. Set up central line tray. Triple lumen ss line placed in right femoral. Line placed by Johnny Hooks MD Placement verified by blood return, Dressed with Tegaderm, Before procedure, did Practitioner(s) obtain informed consent? No. 14:21 Triage completed. ko1 14:40 XRAY Chest (1 view) In Process Unspecified. EDMS 16:20 Patient transferred, IV remains in place. aa5 17:16 One-on-one care X 200 minutes. kb3 Administered Medications: 13:10 Drug: NS 0.9% IV 1000 ml IV at 1000 ml once; to be given as a bolus over 60 minutes aa5 Route: IV; Rate: 1000 ml; Site: right wrist; 14:00 Follow up: IV Status: Completed infusion; IV Intake: 1000ml kb3 13:20 Drug: Piperacillin-Tazobactam IVPB 3.375 grams IVPB once over 60 mins; (mix in NS 100 aa5 mL) Route: IVPB; Infused Over: 60 mins; Site: right wrist; 14:20 Follow up: IV Status: Completed infusion; IV Intake: 100ml kb3 13:30 Drug: Glucagon IVP 1 mg IVP once Route: IVP; Site: right wrist; aa5 13:40 Follow up: Response: No adverse reaction aa5 13:30 Drug: D5-NS IV 1000 ml IV at bolus once; 1000 mL bolus; followed by 125 mL/hr aa5 continuous Route: IV; Rate: bolus; Site: right wrist; 17:13 Follow up: IV Status: Completed infusion; IV Intake: 1250ml kb3 13:42 Drug: Calcium Gluconate IVPB 1 grams IVPB once over 60 mins; (mix in NS 100 mL) Route: aa5 IVPB; Infused Over: 60 mins; Site: right wrist; 15:00 Follow up: Response: No adverse reaction; IV Status: Completed infusion; IV Intake: kb3 100ml 13:52 Drug: EPINEPHrine 0.1mg/mL 1:10,000 1 mg IVP once Route: IVP; Site: right wrist; ss 14:00 Follow up: Response: No adverse reaction aa5 13:56 Drug: EPINEPHrine 0.1mg/mL 1:10,000 1 mg IVP once Route: IVP; Site: right wrist; ss 14:00 Follow up: Response: No adverse reaction aa5 14:05 Drug: Norepinephrine IV 0.1 mcg/kg/min IV at calculated rate Per protocol; (Standard aa5 concentration 4 mg / 250 mL D5W); Recommended max rate 3 mcg/kg/min; Titrate 0.05 mcg/kg/min as often as every 5 minutes to achieve goal (see titration policy); Goal parameter MAP greater than 65 mmHg. {Note: VO was obtained at 1405. Started infusion at 0.2mcg/kg/min per Dr. Mayen's VO. .} Route: IV; Rate: calculated rate; Site: right femoral; 15:10 Follow up: Rate change 0.3 mcg/kg/min; Per MD VO aa5 15:20 Follow up: Rate change 0.4 mcg/kg/min; Rate change ok'd by aaConsuelo 16:20 Follow up: IV Status: Infusion continued upon transfer aa5 14:06 Drug: Ativan IVP 4 mg IVP once; VO at 1405 Route: IVP; Site: right wrist; aa5 14:08 Follow up: Response: No adverse reaction aa5 14:21 Drug: Pantoprazole IVP 40 mg IVP once Route: IVP; Site: right femoral; aa5 14:30 Follow up: Response: No adverse reaction aa5 14:21 Drug: Octreotide IV 50 mcg IV at calculated rate once Route: IV; Rate: calculated rate; aa5 Site: right femoral; 14:30 Follow up: Response: No adverse reaction aa5 17:23 Follow up: Response: Infusion continued upon transfer; IV Status: Completed infusion kb3 14:28 Drug: Sodium Bicarbonate IVP 1 amp IVP once; (50 mL); equals 50 mEq Route: IVP; Site: ss right femoral; 15:00 Follow up: Response: No adverse reaction aa5 14:32 Drug: Midazolam IVP or IV 3 mg IVP once Route: IVP; Site: right femoral; aa5 14:37 Follow up: Response: No adverse reaction aa5 14:32 Drug: Propofol IV 5 mcg/kg/min IV at calculated rate See Administration Instructions; aa5 Standard concentration 1000 mg / 100 mL; Recommended max rate 50 mcg/kg/min; Titrate 5 mcg/kg/min every 5 minutes to achieve goal (see titration policy); Goal parameter RASS score 0 to -2 Route: IV; Rate: calculated rate; Site: right femoral; 14:37 Follow up: Rate change 10 mcg/kg/min aa5 14:42 Follow up: Rate change 15 mcg/kg/min aa5 14:47 Follow up: Rate change 20 mcg/kg/min aa5 14:52 Follow up: Rate changed to 25mcg/kg/min aa5 14:57 Follow up: Rate changed to 30mcg/kg/min aa5 16:20 Follow up: Response: Infusion continued upon transfer. aa5 16:20 Follow up: IV Status: Infusion continued upon transfer kb3 15:05 Drug: Pantoprazole IV 8 mg/hr IV at 25 ml/hr continuous; (Standard dilution is 80 mg in aa5 250 mL NS) Route: IV; Rate: 25 ml/hr; Site: right femoral; 16:20 Follow up: IV Status: Infusion continued upon transfer kb3 16:20 Follow up: Response: Infusion continued upon tranfer aa5 15:05 Drug: Octreotide Infusion (50 mcg/hr) - (Octreotide IV 500 mcg, NS 0.9% IV 500 ml) IV aa5 at 50 ml/hr continuous Route: IV; Rate: 50 ml/hr; Site: right femoral; 16:20 Follow up: IV Status: Infusion continued upon transfer kb3 15:10 Drug: Sodium Bicarbonate IVP 1 amp IVP once; (50 mL); equals 50 mEq Route: IVP; Site: aa5 right femoral; 15:20 Follow up: Response: No adverse reaction aa5 15:10 Drug: Sodium Bicarbonate IVP 1 amp IVP once; (50 mL); equals 50 mEq Route: IVP; Site: aa5 right femoral; 15:20 Follow up: Response: No adverse reaction aa5 16:50 Not Given (Physician Discretion): [id number] ml, sodium bicarbonate ivp 150 meq IV at aa5 calculated rate continuous 17:21 Not Given (Emergencyy): mupirocinointment 2 % 1 application Topical once; Pea sized kb3 amount to both nares Medication: 16:00 VIS not applicable for this client. aa5 Intake: 14:00 IV: 1000ml; Total: 1000ml. kb3 14:20 IV: 100ml; Total: 1100ml. kb3 15:00 IV: 100ml; Total: 1200ml. kb3 17:13 IV: 1250ml; Total: 2450ml. kb3 Outcome: 14:17 ER care complete, transfer ordered by . rn 16:20 Transferred by helicopter Transfer form completed. X-rays sent w/ patient. Note: aa5 Transferred to [facility]. Report given to [facility]. 16:20 Condition: stable 16:20 Instructed on n/a 16:53 Patient left the ED. aa5 17:25 Patient left the ED. kb3 17:26 Patient left the ED. kb3 Signatures: Dispatcher [employer] EDMS Anthony Mayen MD MD rn Calderon, Audri RN RN aa5 Anne Goss RN RN Julianne Jones RN RN jl7 Kendy Dash Kelly, RN RN kb3 Elizabeth Becerril RN RN ko1 Corrections: (The following items were deleted from the chart) 14:14 11:30 Chief complaint: ko1 ko1 14:26 13:54 Assisted provider with intubation using 7.5 mm ETT via oral route. ET tube ss secured at 24cm at the teeth. Set up intubation tray. Intubated by Anthony Mayen MD Placement verified by CO2 detector w/ + color change, auscultating bilateral breath sounds, ss 14:26 13:56 Reassessment: Pulse check, Bradycardia. HR 29 ss ss 14:33 14:31 EPINEPHrine 1:10,000 IVP 1:10,000 1 mg IVP in right wrist ss ss 14:47 14:05 Norepinephrine IV 8.618 mcg/min IV at calculated rate in right femoral; VO was aa5 obtained at 1405 aa5 15:16 13:56 NGT: inserted 18 Fr. verified placement of air over stomach, to intermittent aa5 suction. Returned bright red blood. aa5 15:19 15:10 Rate change 0.3 mcg/kg/min aa5 aa5 17:05 13:58 Arm band placed on right wrist. ss aa5 17:10 15:20 Rate change 0.4 mcg/kg/min aa5 aa5 17:10 17:10 Rate change 0.4 mcg/kg/min; Rate change ok'd by aa5 aa5 17:24 16:20 Response: Infusion continued upon transfer aa5 kb3
[2024-05-21] MEDS ORDERED: PANTOPRAZOLE INJ 80 MG in NA CHLORIDE 0.9% 250 ML IV SCH (14:30)
[2024-05-21] MEDS ORDERED: OCTREOTIDE 500 MCG in NA CHLORIDE 0.9% 500 ML IV SCH (14:30)
[2024-05-21] MEDS ORDERED: MIDAZOLAM HCL 5 ML ONE (14:33)
[2024-05-21] MEDS ORDERED: propofoL 1,000 MG/100 ML VIAL IV ONE (14:33)
[2024-05-21 14:37] LABS: Blood Gas Oxyhemoglobin 82.8 % (94-97); Blood Gas THB 8.3 g/dl (12-18); Blood O2 Saturation 83.6 % (92-98.5)
--- NOTE | 2024-05-21 14:56 | RAD REPORT ---
EXAM: Chest Single View HISTORY: post intubation COMPARISON: Same-day FINDINGS: LUNGS/PLEURA: Scattered lung opacities are present bilaterally. MEDIASTINUM: The mediastinal silhouette is within normal limits. CARDIAC: Mild cardiomegaly UPPER ABDOMEN: No significant abnormality. BONES: No acute abnormality. LINES/TUBES/OTHER: Endotracheal tube at the clavicular heads. Enteric tube tip is at the midesophagus and should be advanced.. IMPRESSION: 1. Endotracheal tube in satisfactory position. NG/OG tube at the midesophagus. This needs to be advan ming. 2. Mild scattered bilateral airspace opacities which may reflect pneumonia or pneumonitis. THIS REPORT CONTAINS FINDINGS THAT MAY BE CRITICAL TO PATIENT CARE. The findings regarding the enteri c tube were communicated to Dr. Deondre Mayen on 05/21/2024 2:54 PM.
[2024-05-21 16:43] LABS: Anion Gap 33.8 mEq/L (5.0-15.0)
[2024-05-21 16:44] LABS: Potassium 2.8 mEq/L (3.5-5.1)
[2024-05-22 07:35] VITALS: TEMP 96.6
[2024-05-22 07:40] VITALS: BP 111/54; O2SAT 98
--- NOTE | 2024-05-24 12:10 | EKG ---
Test Date: 2024-05-21 Test Time: 13:23:49 [employer] Trimmer: ELISE MEASUREMENT RESULTS: Intervals: Rate: 67 [place]: 178 QRSD: 76 QT: 504 QTc: 532 [place]: P: 54 [place]: 178 QRS: 55 T: 50 INTERPRETIVE STATEMENTS: Normal sinus rhythm Possible Left atrial enlargement Septal infarct, age undetermined Prolonged QT Abnormal ECG No previous ECG available for comparison Electronically Signed On 05-24-24 12:10:04 RESEARCH PHLEBOTOMIST by Scot Holley
== END 2024-05-21 17:26 | disposition short-term general hospital (02) ==
LOC: ER 11:28
DX: J18.9 Pneumonia, unspecified organism (principal); E87.1 Hypo-osmolality and hyponatremia; K70.31 Alcoholic cirrhosis of liver with ascites; E87.20 Acidosis, unspecified
CPT/HCPCS: 31500; 36415; 36556; 36600; 51702; 70450; 71045; 71250; 74176; 80048; 80053; 82077; 82140; 82805; 82947; 83605; 85025; 85610; 85730; 87040; 87205; 92950; 93005; 94002; 99285; J0612; J1610; J2250; J2354; J2470; J2543; J2704; J7030; J7040; J7042; J7050; J7131